=== PATIENT | male | born 1965 | race Caucasian/White ===

== ENCOUNTER 2019-08-16 11:16 | Outpatient (CLI) | payer OTHER | END 2019-08-16 11:17 | disposition home or self-care (01) | LOC: LAB 11:16 | PROVIDERS: ATTEND Otolaryngology | DX: C10.9 Malignant neoplasm of oropharynx, unspecified (principal); Z11.59 Encounter for screening for other viral diseases | CPT/HCPCS: 81599 ==

== ENCOUNTER 2020-05-29 07:22 | Outpatient (CLI) | payer OTHER | END 2020-05-29 07:23 | disposition critical access hospital (66) | LOC: EMS 07:22 | PROVIDERS: ATTEND Emergency Medicine | DX: R55 Syncope and collapse (principal) | CPT/HCPCS: A0425; A0427 ==

== ENCOUNTER 2020-05-29 07:43 | Emergency (ER) | payer OTHER ==
[2020-05-29 08:23] LABS: BASOPHILS # (AUTO) 0.1 10^3/uL (0.0-0.1); BASOPHILS % (AUTO) 0.3 %; EOSINOPHILS # (AUTO) 0.1 10^3/uL (0.0-0.7); EOSINOPHILS % (AUTO) 0.4 %; HCT - HEMATOCRIT 38.9 % (42.0-52.0); HGB - HEMOGLOBIN 12.7 g/dL (14.0-18.0); LYMPHOCYTES # (AUTO) 0.8 10^3/uL (1.5-3.5); MEAN CORPUSCULAR HEMOGLOBIN 29.3 pg (27.0-31.0); MEAN CORPUSCULAR HGB CONC 32.6 g/dL (32.0-36.0); MEAN CORPUSCULAR VOLUME 89.6 fL (80.0-94.0); MEAN PLATELET VOLUME 9.5 fL (7.4-11.4); MONOCYTES % (AUTO) 6.4 %; NEUTROPHILS # (AUTO) 13.3 10^3/uL (1.5-6.6); NEUTROPHILS % (AUTO) 87.4 %; PLT - PLATELET COUNT 186 10^3/uL (130-450); RED BLOOD COUNT 4.34 10^6/uL (4.70-6.10); RED CELL DISTRIBUTION WIDTH 12.6 % (12.0-15.0); WHITE BLOOD COUNT 15.2 x10^3/uL (4.8-10.8)
--- NOTE | 2020-05-29 08:38 | XRAY Report ---
PROCEDURE: Chest 1 View X-Ray INDICATIONS: Chest Pain TECHNIQUE: One view of the chest was acquired. COMPARISON: None FINDINGS: Surgical changes and devices: Right-sided Port-A-Cath is present with distal tip projecting over the mid SVC. Lungs and pleura: No pleural effusions or pneumothorax. Lungs are clear. Mediastinum: Mediastinal contours appear normal. Heart size is normal. Bones and chest wall: No suspicious bony lesions. Overlying soft tissues appear unremarkable. IMPRESSION: No acute pulmonary process. Reviewed by: Sue Danielle MD on 05/29/2020 8:37 AM PDT Approved by: Sue Danielle MD on 05/29/2020 8:37 AM PDT Station ID: [id number]
[2020-05-29 08:41] LABS: ALBUMIN 4.2 g/dL (3.2-5.5); ALBUMIN/GLOBULIN RATIO 1.2 (1.0-2.2); BILIRUBIN,TOTAL 1.1 mg/dL (0.2-1.0); CALCIUM 9.2 mg/dL (8.5-10.3); CREATININE 1.1 mg/dL (0.6-1.2); TOTAL PROTEIN 7.6 g/dL (6.7-8.2)
--- NOTE | 2020-05-29 09:11 | ED Physician Documentation ---
History of Present Illness - Stated complaint Stated Complaint: NEAR SYNCOPE - Chief complaint Chief Complaint: Neuro - History obtained from History obtained from: Patient - Additonal information Additional information: 54-year-old man with history of throat cancer and multiple presyncopal episodes since starting chemotherapy presents with presyncopal episode x3 in the shower this morning. He states he was taking a very warm shower and slid to the floor after having a wave of nausea and lightheadedness. He did not completely lose consciousness and did not hit his head. Also endorses some subjective chills last night and body aches around 3 AM waking him up from sleep. Denies fever, chest pain shortness of breath, cough, abdominal pain, vomiting or diarrhea. Denies urinary symptoms. Review of Systems Ten Systems: 10 systems reviewed and negative Constitutional: reports: Chills, Myalgias, Fatigue. denies: Fever Cardiac: denies: Chest pain / pressure, Palpitations Respiratory: denies: Dyspnea, Cough GI: denies: Abdominal Pain, Vomiting, Diarrhea Skin: denies: Rash Musculoskeletal: denies: Neck pain Neurologic: reports: Generalized weakness, Near syncope PD PAST MEDICAL HISTORY - Past Medical History HEENT: Other Other Past Medical History: throat cancer - Past Surgical History Ortho: Other - Present Medications Home Medications: Ambulatory Orders Medication Instructions Recorded Confirmed No Known Home Medications 05/29/20 05/29/20 - Allergies Allergies/Adverse Reactions: Allergies Allergy/AdvReac Type Severity Reaction Status Date / Time codeine AdvReac Nausea Verified 05/29/20 07:55 - Social History Does the pt smoke?: No Smoking Status: Never smoker Does the pt drink ETOH?: Yes ETOH Use: Wine, Beer Does the pt have substance abuse?: No PD ED PE NORMAL - Vitals Vital signs reviewed: Yes - General General: Alert and oriented X 3, No acute distress, Well developed/nourished - HEENT HEENT: Atraumatic, PERRL, EOMI, Moist mucous membranes, Pharynx benign - Neck Neck: Supple, no meningeal sign - Cardiac Cardiac: RRR - Respiratory Respiratory: No respiratory distress, Clear bilaterally - Abdomen Abdomen: Non tender, Non distended - Male Male : Deferred - Rectal Rectal: Deferred - Derm Derm: Normal color, Warm and dry - Extremities Extremities: No deformity, No edema - Neuro Neuro: Alert and oriented X 3, [employer] 2-12 intact, No motor deficit, No sensory deficit, Normal speech (Nasal speech) - Psych Psych: Normal mood, Normal affect Results - Vitals Vitals: Vital Signs - 24 hr 05/29/20 05/29/20 05/29/20 07:48 07:58 08:12 Temperature 36.5 C Heart Rate 64 59 L Heart Rate [ 65 Sitting] Heart Rate [ 70 Standing] Heart Rate [ 65 Supine] Respiratory 19 13 Rate Blood Pressure 110/71 104/60 Blood Pressure 100/67 [Sitting] Blood Pressure 104/60 [Standing] Blood Pressure 110/71 [Supine] O2 Saturation 98 100 Oxygen O2 Source Room air - Labs Labs: Laboratory Tests 05/29/20 05/29/20 05/29/20 08:20 08:20 08:20 WBC 15.2 H RBC 4.34 L Hgb 12.7 L Hct 38.9 L MCV 89.6 MCH 29.3 MCHC 32.6 RDW 12.6 Plt Count 186 MPV 9.5 Neut # (Auto) 13.3 H Lymph # (Auto) 0.8 L [place] # (Auto) 1.0 Eos # (Auto) 0.1 Baso # (Auto) 0.1 Absolute Nucleated RBC 0.00 Nucleated RBC % 0.0 Sodium 137 Potassium 4.0 Chloride 102 Carbon Dioxide 25 Anion Gap 10.0 BUN 19 Creatinine 1.1 Estimated GFR (MDRD) 69 L Glucose 106 H Calcium 9.2 Total Bilirubin 1.1 H AST 16 ALT 18 Alkaline Phosphatase 75 Troponin I High Sens 2.6 Total Protein 7.6 Albumin 4.2 Globulin 3.4 Albumin/Globulin Ratio 1.2 Lipase 20 L PD MEDICAL DECISION MAKING - ED course ED course: Offered observation overnight cardiac monitoring with echo in the morning to the patient and he declined, preferring to follow-up with his oncologist Dr. Warren at [facility]. He also has an appoint with ENT on June 06. Departure - Departure Disposition: 01 Home, Self Care Clinical Impression: Pre-syncope, Chills (without fever), Body aches Condition: Good Instructions: ED Near Syncope Unkn Follow-Up: Ismael Warren MD [Physician No Access] - Comments: You are seen in the emergency department for lightheadedness. Your EKG did not show any concerning findings and your blood work showed only a mild increased white blood cell count of 15 as well as mild anemia. You should follow-up with your primary doctor this week. Make an appointment with your oncologist and keep your appointment with your ENT on June 06. Return to the emergency department if you faint, experience fever higher than 100.4, or have any other new or worsening symptoms or other concerns. Stay well hydrated and try to drink 8-10 glasses of water daily.
[2020-05-29 09:31] VITALS: BP 121/62
== END 2020-05-29 09:25 | disposition home or self-care (01) ==
LOC: EDBD → EDUNIT# → ED 07:43
DX: R55 Syncope and collapse (principal); R42 Dizziness and giddiness; R68.83 Chills (without fever); R52 Pain, unspecified; D72.829 Elevated white blood cell count, unspecified; D64.9 Anemia, unspecified; Z85.819 Personal history of malignant neoplasm of unspecified site of lip, oral cavity, and pharynx
CPT/HCPCS: 36415; 80053; 83690; 84484; 85025; 93005; 99284

== ENCOUNTER 2022-08-20 06:35 | Emergency (ER) | payer OTHER ==
--- NOTE | 2022-08-20 06:57 | ED Physician Documentation ---
PD HPI ABD PAIN - Stated complaint Stated Complaint: R SIDE PX/VOMITING - Chief complaint Chief Complaint: Abd Pain - History obtained from History obtained from: Patient, Family (spouse) - History of Present Illness Timing - onset: Today, Last night Timing - details: Abrupt onset (shortly after eating.), Still present Quality: Cramping, Aching, Pain Location: RUQ Radiation: No: Chest, Lower back Improved by: Laying still Worsened by: Moving, Palpation. No: Breathing Associated symptoms: Nausea, Vomiting. No: Fever, Diarrhea Similar symptoms before: Has not had sx before Recently seen: Not recently seen Review of Systems Constitutional: denies: Fever, Chills Nose: denies: Rhinorrhea / runny nose, Congestion Throat: denies: Sore throat Respiratory: denies: Cough GI: reports: Abdominal Pain, Nausea, Vomiting. denies: Constipation, Diarrhea : denies: Dysuria Neurologic: denies: Generalized weakness, Near syncope, Altered mental status PD PAST MEDICAL HISTORY - Past Medical History Cardiovascular: None Respiratory: None Neuro: None Endocrine/Autoimmune: None HEENT: Other (tonsil cancer with treatment and resolved 3 years ago) - Past Surgical History Ortho: Other - Present Medications Home Medications: Ambulatory Orders Medication Instructions Recorded Confirmed Dicyclomine [Bentyl] 10 mg PO TID #20 cap 08/20/22 Ondansetron Odt [Zofran] 4 mg TL Q6H PRN #10 tablet 08/20/22 oxyCODONE [Roxicodone] 5 mg PO Q6H PRN #20 tablet 08/20/22 - Allergies Allergies/Adverse Reactions: Allergies Allergy/AdvReac Type Severity Reaction Status Date / Time codeine AdvReac Nausea Verified 08/20/22 06:44 - Social History Does the pt smoke?: No Smoking Status: Never smoker Does the pt drink ETOH?: Yes Does the pt have substance abuse?: No PD ED PE NORMAL - Vitals Vital signs reviewed: Yes - General General: Alert and oriented X 3, Well developed/nourished, Other (appears in considerable pain) - Neck Neck: Supple, no meningeal sign, No adenopathy - Cardiac Cardiac: RRR, No murmur - Respiratory Respiratory: Clear bilaterally - Abdomen Abdomen: Soft, Non distended, No organomegaly, Other (markedly tender RUQ with guarding and percussion tenderness. Lower abd not tender. ) - Derm Derm: Normal color, Warm and dry - Extremities Extremities: No edema, No calf tenderness / cord Results - Vitals Vitals: Vital Signs - 24 hr 08/20/22 08/20/22 08/20/22 06:41 07:35 09:34 Temperature 36.1 C L Heart Rate 58 L 58 L 65 Respiratory 15 18 18 Rate Blood Pressure 157/86 H 145/75 H 144/90 H O2 Saturation 99 100 97 08/20/22 08/20/22 11:00 12:03 Temperature Heart Rate 78 69 Respiratory 18 18 Rate Blood Pressure 128/67 120/75 O2 Saturation 97 95 Oxygen O2 Source Room air - Labs Labs: Laboratory Tests 08/20/22 08/20/22 08/20/22 07:17 07:17 11:22 WBC 9.9 RBC 4.73 Hgb 13.7 L Hct 41.5 L MCV 87.7 MCH 29.0 MCHC 33.0 RDW 12.5 Plt Count 250 MPV 10.0 Neut # (Auto) 9.0 H Lymph # (Auto) 0.5 L [place] # (Auto) 0.3 Eos # (Auto) 0.0 Baso # (Auto) 0.0 Absolute Nucleated RBC 0.00 Nucleated RBC % 0.0 Sodium 136 Potassium 4.3 Chloride 99 L Carbon Dioxide 28 Anion Gap 9.0 BUN 20 Creatinine 1.0 Estimated GFR (MDRD) 77 L Glucose 133 H Calcium 9.4 Total Bilirubin 0.8 AST 14 ALT 17 Alkaline Phosphatase 62 Total Protein 8.1 Albumin 4.3 Globulin 3.8 Albumin/Globulin Ratio 1.1 Lipase 26 Urine Color DARK YELLOW Urine Clarity CLEAR Urine pH 6.0 Ur Specific [place] 1.025 Urine Protein NEGATIVE Urine Glucose (UA) NEGATIVE Urine Ketones 40 H Urine Occult Blood NEGATIVE Urine Nitrite NEGATIVE Urine Bilirubin NEGATIVE Urine Urobilinogen 0.2 (NORMAL) Ur Leukocyte Esterase NEGATIVE Ur Microscopic Review NOT INDICATED Urine Culture Comments NOT INDICATED - Rads (name of study) abd U/S Relevant Findings:: Prelim report reviewed, EMP independent interpretation of test, See rad report, Other (U/S Tech - He has a large 3 cm stone in the gallbladder neck with some distention of the gallbladder and mild pericholecystic fluid. Early acute cholecystitis is suspected.) PD Medical Decision Making - ED course Complexity details: reviewed results, re-evaluated patient, considered differential (Abrupt onset of pain that is continued through the night in the right upper quadrant. Pattern of symptoms and exam most likely consistent with gallbladder problem. We will check labs as well for liver and pancreatic process. Will give IV fluids and medications and get ultrasound and labs.), d/w patient, d/w network security consultant (Dr. Cutler who is on-call for surgery.) ED course: The patient had improvement in his symptoms with fluids and antiemetic and pain medicine. He did have recurrence of pain after the ultrasound with local palpation. Repeat dose of pain medicine was given. Subsequently states his pain is minimal at 1 out of 10. He is able to drink fluids and subsequently some crackers after I discussed it with the surgeon. He does have potential signs of early cholecystitis but his symptoms are well improved and the surgeon felt he could be discharged for close prompt follow-up in the office if his symptoms were that minimal. The patient was comfortable with discharge home with regard to pain level and having prescriptions available. He is to return if he has worsening symptoms again as this may progress into a a more acute cholecystitis. Departure - Departure Disposition: 01 Home, Self Care Clinical Impression: Abdominal pain, Gallbladder attack, Cholelithiasis Condition: Stable Instructions: ED Gallstone W Biliary Colic Follow-Up: Betty Cutler MD [Provider Admit Priv/Credential] - Prescriptions: Dicyclomine [Bentyl] 10 mg PO TID #20 cap oxyCODONE [Roxicodone] 5 mg PO Q6H PRN #20 tablet PRN Reason: Pain Ondansetron Odt [Zofran] 4 mg TL Q6H PRN #10 tablet PRN Reason: Nausea / Vomiting Comments: You do have a large gallstone in the neck of the gallbladder which is in a location which causes blockage for the bile to get out of the gallbladder and subsequently cause spasms. There is a little bit of inflammation and swelling of the gallbladder correlating with this being the cause of your pain. 1 could anticipate having symptoms again from this in particular related to fatty foods. Have a nonfat diet over the next week or 2. At this point it does not seem that your gallbladder needs out emergently today based on the control of your symptoms. However we do want you to follow-up and discuss gallbladder surgery with the Dr. Cutler the surgeon. Call the surgical office today to set up an appointment. They should be notified of you and arrange an appointment for the next couple of days. Nonfat diet. Stay well-hydrated. Use dicyclomine antispasmodic 2-3 times daily to help reduce chance of gallbladder spasms. Ondansetron if needed for nausea. Add Tylenol every 4-6 hours if needed for pain and also add oxycodone then if needed for worse pain. Return to the ER if significant pain despite the above medications or if you develop repetitive vomiting, fevers, generalized abdominal pain or other concerns. I sent your prescriptions to [facility] pharmacy. I am prescribing a short course of narcotic pain medication for you. These are potentially dangerous and addictive medications that should be used carefully. These medications may constipate you. Take an [id number] stool softener such as docusate twice daily with plenty of water while taking these medications. If you go 24 hours without a bowel movement, take enhl-nic-[id number] MiraLAX, per package instructions. Do not drink or drive while taking these medications. If you received narcotic or sedating medications while in the emergency department do not drive for 24 hours. Store this medication in a safe, secure place and out of reach of children. It is a violation of federal law to give or sell this medication to another person or to use in a manner other than prescribed. The ED will not refill narcotic prescriptions, including prescriptions lost or stolen. You can dispose of unwanted medications at the [facility]'s office or at several pharmacies such as [facility]. Discharge Date/Time: 08/20/22 12:07
[2022-08-20] MEDS ORDERED: KETOROLAC 15 MG/ML VIAL IVP STA (07:08)
[2022-08-20] MEDS ORDERED: SODIUM CHLORIDE 0.9% 1,000 ML IV STA ×2 (07:08→09:31)
[2022-08-20] MEDS ORDERED: HYDROmorphone 1 MG/ML CARPUJECT IVP STA ×2 (07:08→09:33)
[2022-08-20] MEDS ORDERED: ONDANSETRON 4 MG/2 ML VIAL IVP STA (07:08)
[2022-08-20 07:28] LABS: BASOPHILS % (AUTO) 0.3 %; HCT - HEMATOCRIT 41.5 % (42.0-52.0); HGB - HEMOGLOBIN 13.7 g/dL (14.0-18.0); LYMPHOCYTES # (AUTO) 0.5 10^3/uL (1.5-3.5); LYMPHOCYTES % (AUTO) 4.7 %; MEAN CORPUSCULAR VOLUME 87.7 fL (80.0-94.0); MONOCYTES # (AUTO) 0.3 10^3/uL (0.0-1.0); MONOCYTES % (AUTO) 3.2 %; NEUTROPHILS % (AUTO) 91.3 %; PLT - PLATELET COUNT 250 10^3/uL (130-450); RED BLOOD COUNT 4.73 10^6/uL (4.70-6.10); RED CELL DISTRIBUTION WIDTH 12.5 % (12.0-15.0); WHITE BLOOD COUNT 9.9 x10^3/uL (4.8-10.8)
[2022-08-20 07:38] LABS: ALBUMIN 4.3 g/dL (3.2-5.5); ALBUMIN/GLOBULIN RATIO 1.1 (1.0-2.2); BILIRUBIN,TOTAL 0.8 mg/dL (0.2-1.0); CALCIUM 9.4 mg/dL (8.5-10.3); POTASSIUM 4.3 mmol/L (3.5-5.0); TOTAL PROTEIN 8.1 g/dL (6.7-8.2)
--- NOTE | 2022-08-20 09:31 | Ultrasound Report ---
PROCEDURE: Abdomen Limited INDICATIONS: RUQ pain and vomiting since last evening TECHNIQUE: Real-time focused scanning was performed of the abdomen, with image documentation. COMPARISONS: None. FINDINGS: Liver: Liver is normal in size and hyperechoic intraparenchymal echotexture. No discrete hepatic les ion is noted. Gallbladder: Enlarged gallbladder with stone seen in medical gallbladder measures 3.3 cm and is not m obile. Trace amount of pericholecystic fluid is seen. No sonographic Lagunas's sign or significant gal lbladder wall thickening. Biliary ducts: Intrahepatic bile ducts are non-dilated. Extrahepatic bile duct caliber measures 7.2 mm. Normal is 6-7 mm or less in diameter, or 10 mm or less post-cholecystectomy. Pancreas: Visualized portions of the pancreas are sonographically normal. Right kidney: Normal in size and echotexture. Right kidney measures 11.1 cm long. No hydronephrosis or nephrolithiasis. No solid masses. No complex renal cystic lesions which require follow-up. Aorta: Visualized aorta is normal in caliber at less than 3 cm. IVC: Intrahepatic inferior vena cava is patent. Miscellaneous: No free abdominal fluid. IMPRESSION: 1. Cholelithiasis with distended gallbladder and trace amount of pericholecystic fluid. Early acute c holecystitis is suspected. 2. Borderline prominent common bile duct. No gross choledocholithiasis. 3. Hepatic steatosis. Reviewed by: Varun Mckay MD on 08/20/2022 9:30 AM PDT Approved by: Varun Mckay MD on 08/20/2022 9:30 AM PDT Station ID: [id number]
[2022-08-20 11:28] LABS: BILIRUBIN,URINE NEGATIVE (NEGATIVE); GLUCOSE, URINE (UA) NEGATIVE (NEGATIVE); KETONES,URINE (UA) 40 mg/dL (NEGATIVE); LEUKOCYTE ESTERASE, URINE NEGATIVE (NEGATIVE); NITRITE,URINE NEGATIVE (NEGATIVE); OCCULT BLOOD,URINE NEGATIVE (NEGATIVE); PROTEIN,URINE NEGATIVE (NEGATIVE); UROBILINOGEN,URINE 0.2 (NORMAL) E.U./dL (NORMAL)
[2022-08-20 11:30] LABS: CLARITY,URINE CLEAR (CLEAR)
[2022-08-20 12:10] VITALS: BP 120/75
== END 2022-08-20 12:07 | disposition home or self-care (01) ==
LOC: ED 06:35
DX: K80.20 Calculus of gallbladder without cholecystitis without obstruction (principal); R10.11 Right upper quadrant pain
CPT/HCPCS: 36415; 80053; 81001; 81003; 83690; 85025; 87086; 96374; 96375; 96376; 99285

== ENCOUNTER 2022-08-20 19:54 | Day surgery (SDC) | payer OTHER ==
[2022-08-20] MEDS ORDERED: HYDROmorphone 0.5 MG/0.5 ML SYRINGE IVP STA (21:26)
[2022-08-20] MEDS ORDERED: ONDANSETRON 4 MG/2 ML VIAL IVP STA (21:26)
--- NOTE | 2022-08-20 21:32 | ED Physician Documentation ---
PD HPI ABD PAIN - Stated complaint Stated Complaint: ABD PX - Chief complaint Chief Complaint: Abd Pain - History obtained from History obtained from: Patient - Additional information Additional information: 56-year-old male with a past medical history of tonsil cancer status posttreatment, presents for the second time today with right upper quadrant abdominal pain with nausea and vomiting. He was evaluated this morning in ultrasound revealed gallstones with possible early cholecystitis so his labs are stable. He had substantial improvement with IV pain and nausea medicine and and therefore was discharged home with instructions to adhere to a low-fat diet and follow-up with surgery on outpatient basis. The patient ate some salad and cereal and subsequently developed severe recurrence of his right upper quadrant abdominal pain as well as nausea and dry heaving. He tried the oxycodone that he was given as well as a Zofran and had [place] no relief in his pain thus he presented back to the ER tonight. He has not had a fever to his knowledge. Review of Systems Constitutional: reports: Reviewed and negative Cardiac: reports: Reviewed and negative Respiratory: reports: Reviewed and negative GI: reports: Abdominal Pain, Nausea, Vomiting. denies: Constipation, Diarrhea, Hematemesis : reports: Reviewed and negative Skin: reports: Reviewed and negative PD PAST MEDICAL HISTORY - Past Medical History Past Medical History: Yes Cardiovascular: None Respiratory: None Neuro: None Endocrine/Autoimmune: None HEENT: Other (tonsil cancer with treatment and resolved 3 years ago) - Past Surgical History Ortho: Other - Present Medications Home Medications: Ambulatory Orders Medication Instructions Recorded Confirmed Dicyclomine [Bentyl] 10 mg PO TID #20 cap 08/20/22 Ondansetron Odt [Zofran] 4 mg TL Q6H PRN #10 tablet 08/20/22 oxyCODONE [Roxicodone] 5 mg PO Q6H PRN #20 tablet 08/20/22 - Allergies Allergies/Adverse Reactions: Allergies Allergy/AdvReac Type Severity Reaction Status Date / Time codeine AdvReac Nausea Verified 08/20/22 20:08 - Social History Does the pt smoke?: No Smoking Status: Never smoker Does the pt drink ETOH?: Yes Does the pt have substance abuse?: No - POLST Patient has POLST: No PD ED PE NORMAL - Vitals Vital signs reviewed: Yes - General General: Alert and oriented X 3, Well developed/nourished, Other (Dry heaving) - HEENT HEENT: Atraumatic, Moist mucous membranes - Neck Neck: Other (Scarring from prior tonsil surgery) - Cardiac Cardiac: RRR, No murmur - Respiratory Respiratory: No respiratory distress, Clear bilaterally - Abdomen Abdomen: Normal bowel sounds, Soft, Non distended, Other (Mild right upper quadrant tenderness to palpation.) - Derm Derm: Normal color, Warm and dry - Extremities Extremities: No deformity, No tenderness to palpate - Neuro Neuro: Alert and oriented X 3 Eye Opening: Spontaneous Motor: Obeys Commands Verbal: Oriented GCS Score: 15 Results - Vitals Vitals: Vital Signs - 24 hr 08/20/22 20:03 Temperature 37.0 C Heart Rate 60 Respiratory 17 Rate Blood Pressure 140/77 H O2 Saturation 99 Oxygen O2 Source Room air - Rads (name of study) No standard instances Relevant Findings:: Final report received (Reviewed ultrasound from this morning) PD Medical Decision Making - ED course Complexity details: reviewed results, re-evaluated patient, considered differential, d/w patient, d/w family ED course: 56-year-old male who presents for the second time today with right upper quadrant pain. He Had a right upper quadrant ultrasound this morning that showed a gallstone and possible early acute Cholecystitis however labs reassuring x-ray sent home with supportive measures and return precautions. Symptoms worsened after he attempted a low-fat meal today and his symptoms have not relented despite trying Oral meds. I therefore will repeat his labs now and likely will need admission for possible cholecystectomy tomorrow given his severe and recurrent symptoms and concern for possible acute cholecystitis Departure - Departure Clinical Impression: Cholecystitis, Gallstones Condition: Good
[2022-08-20 21:50] LABS: BASOPHILS % (AUTO) 0.3 %; EOSINOPHILS % (AUTO) 0.3 %; HGB - HEMOGLOBIN 13.6 g/dL (14.0-18.0); LYMPHOCYTES % (AUTO) 7.6 %; MEAN CORPUSCULAR HEMOGLOBIN 28.8 pg (27.0-31.0); MEAN CORPUSCULAR HGB CONC 32.4 g/dL (32.0-36.0); MEAN CORPUSCULAR VOLUME 88.8 fL (80.0-94.0); MEAN PLATELET VOLUME 9.9 fL (7.4-11.4); MONOCYTES # (AUTO) 1.2 10^3/uL (0.0-1.0); MONOCYTES % (AUTO) 8.6 %; NEUTROPHILS # (AUTO) 11.1 10^3/uL (1.5-6.6); NEUTROPHILS % (AUTO) 82.9 %; PLT - PLATELET COUNT 261 10^3/uL (130-450); RED BLOOD COUNT 4.73 10^6/uL (4.70-6.10); RED CELL DISTRIBUTION WIDTH 12.8 % (12.0-15.0); WHITE BLOOD COUNT 13.4 x10^3/uL (4.8-10.8)
[2022-08-20 22:12] LABS: ALBUMIN 4.4 g/dL (3.2-5.5); ALBUMIN/GLOBULIN RATIO 1.2 (1.0-2.2); BILIRUBIN,TOTAL 1.1 mg/dL (0.2-1.0); CREATININE 1.1 mg/dL (0.6-1.2); TOTAL PROTEIN 8.1 g/dL (6.7-8.2)
[2022-08-20] MEDS ORDERED: ONDANSETRON 4 MG/2 ML VIAL IVP PRN (22:34)
[2022-08-20] MEDS ORDERED: PIPERACILLIN/TAZOBACTAM 4.5 GM in SODIUM CHLORIDE 0.9% MINIBAG 100 ML IV STA (22:35)
[2022-08-20] MEDS ORDERED: ACETAMINOPHEN 500 MG TABLET PO PRN (22:37)
[2022-08-20 22:58] LABS: HGB - HEMOGLOBIN 12.9 g/dL (14.0-18.0); MEAN CORPUSCULAR HEMOGLOBIN 29.3 pg (27.0-31.0); MEAN CORPUSCULAR HGB CONC 33.1 g/dL (32.0-36.0); MEAN CORPUSCULAR VOLUME 88.6 fL (80.0-94.0); MEAN PLATELET VOLUME 10.1 fL (7.4-11.4); RED BLOOD COUNT 4.4 10^6/uL (4.70-6.10); RED CELL DISTRIBUTION WIDTH 12.7 % (12.0-15.0); WHITE BLOOD COUNT 14.2 x10^3/uL (4.8-10.8)
[2022-08-20 23:25] LABS: ALBUMIN/GLOBULIN RATIO 1.1 (1.0-2.2); BILIRUBIN,TOTAL 1.3 mg/dL (0.2-1.0); CALCIUM 8.9 mg/dL (8.5-10.3); POTASSIUM 4.2 mmol/L (3.5-5.0); TOTAL PROTEIN 7.6 g/dL (6.7-8.2)
[2022-08-21] MEDS: KETOROLAC 15 MG/ML VIAL IVP PRN ×2 (00:20→06:16)
[2022-08-21] MEDS: SODIUM CHLORIDE 0.9% 1,000 ML IV SCH ×2 (00:21→11:01)
[2022-08-21] MEDS: HYDROmorphone 0.5 MG/0.5 ML SYRINGE IVP PRN ×2 (00:48→05:17)
--- NOTE | 2022-08-21 07:26 | SURGERY HX AND PHYSICAL(T) ---
Surgical History & Physical - Chief Complaint/HPI Chief Complaint: RUQ pain History of Present Illness: 56 y/o M with acute onset of sharp RUQ pain Friday night at 2300 after eating BBQ ribs for dinner. His pain was constant and did not radiate. He presented to the ED and workup included a normal white count and RUQ sono with a stone, - Lagunas sign, and without wall thickening. He felt much better after receiving pain medication, and tolerated a diet without worsening symptoms. At that time, he was discharged home with plan for close follow up with surgery and return precautions. The patient returned home and ate breakfast without trouble. He had taco salad for dinner and had recurrent pain with nausea, prompting him to return to the ED. His pain was again controlled in the ED. Repeat lab shows increased wbc. This morning, the patient states he has some discomfort but was able to sleep overnight. He denies fevers, chills, nausea, vomiting. - PMH/PSH/Social Hx Neurological History: None Eyes, Ears, Nose, Throat: Other (tonsil cancer with intial treatment 01/2017, recurred in 08/2019) Cardiovascular: None Respiratory: None Skin: None Endocrine/Autoimmune: None Gastrointestinal: Chronic constipation Urinary: Other Musculoskeletal: None Blood Disorders: None Psychiatric: None PMH Other: pt states he has an enlarged prostate, tinnitus General: Gastric surgery (g tube) Orthopedic: Other Eyes Ears Nose Throat (EENT): Tonsil/Adenoidectomy, Other Dermatologic: Skin grafts Smoking Status: Former smoker Does the pt drink ETOH?: Yes Does the pt have substance abuse?: No - Family Hx Family Hx: Other (non contributory) - Home Meds and Allergies Allergies/Adverse Reactions: Allergies Allergy/AdvReac Type Severity Reaction Status Date / Time codeine AdvReac Nausea Verified 08/20/22 20:08 - Review of Systems Constitutional: Other (A complete 10 point review of symptoms is otherwise negative except for that noted in HPI and PMH.) - Vital Signs Heart Rate: 59 Blood Pressure: 152/69 Temperature: 36.5 C Respiratory Rate: 12 O2 Saturation: 99 Weight (kg): 96 kg Height: 1.85 m - Physical Exam Comments/Other: GEN: No acute distress, appears stated age, alert and oriented HEENT: NCAT, MMM, EOMI, scarring consistent with previous surgery NEURO: no obvious focal deficits CV: RRR PULM: non labored, on RA ABD: soft, moderate RUQ ttp with palpable mass, no rebound or guarding CIRCULATORY: no clubbing, cyanosis, or edema SKIN: no lesions appreciated LYMPH: no obvious lymphadenopathy MSK: 4/4 strength in all extremities PSYCH: Affect is appropriate - Patient Review Patient Review: Problems were reviewed with the patient during this visit. Medications were reviewed with the patient during this visit. Allergies were reviewed this patient during this visit. Pertinent Tests Reviewed: All pertitent test for this patient were reviewed. - Assessment & Plan Assessment and Plan: 56 y/o M with: 1. acute cholecystitis - wbc elevated - Plan for lap po with cholangiogram possible open, today. I discussed the natural history of acute cholecystitis with the patient. We also discussed the risks, benefits, and alternatives of laparoscopic cholecystectomy with cholangiogram and possible open procedure. We discussed surgical risks including bleeding, infection, and damage to surrounding structures. We also discussed the intraoperative and postoperative plan including the possible need for drain placement and possibility of an open procedure. The patient voiced understanding, his questions were answered, and he wished to proceed with surgery. A consent was signed by the patient. - will adat after surgery - anticipate patient will discharge after surgery this afternoon 2. h/o tonsil ca - s/p surgery, chemo, radiation - scarring preset - anesthesia to eval patient prior to surgery.
[2022-08-21] MEDS ORDERED: LIDOCAINE OINTMENT 5% 35.44 GM TUBE ONE (10:45)
[2022-08-21] MEDS ORDERED: GABAPENTIN 300 MG CAPSULE PO ONE (11:00)
[2022-08-21] MEDS ORDERED: acetaZOLAMIDE 250 MG TABLET PO ONE (11:00)
[2022-08-21] MEDS ORDERED: ACETAMINOPHEN 500 MG TABLET PO ONE (11:00)
--- NOTE | 2022-08-21 11:04 | ANESTHESIA ---
Pre-Anesthesia VS, & Labs - Diagnosis acute cholecystitis - Procedure lap po Vital Signs: Temp Pulse Resp BP Pulse Ox O2 Flow Rate 36.7 C 70 16 118/56 L 95 08/21/22 08:33 08/21/22 08:33 08/21/22 08:33 08/21/22 08:33 08/21/22 08:33 Height: 6 ft 1 in Weight (kg): 96 kg Body Mass Index: 27.9 BMI Classification: Overweight - NPO >8 hours - Lab Results Current Lab Results: Laboratory Tests 08/20/22 22:55: Sodium 136, Potassium 4.2, Chloride 101, Carbon Dioxide 28, Anion Gap 7.0, BUN 15, Creatinine 1.0, Estimated GFR (MDRD) 77 L, Glucose 129 H, Calcium 8.9, Total Bilirubin 1.3 H, AST 13, ALT 18, Alkaline Phosphatase 59, Total Protein 7.6, Albumin 4.0, Globulin 3.6, Albumin/Globulin Ratio 1.1 08/20/22 22:55: WBC 14.2 H, RBC 4.40 L, Hgb 12.9 L, Hct 39.0 L, MCV 88.6, MCH 29.3, MCHC 33.1, RDW 12.7, Plt Count 238, MPV 10.1 08/20/22 21:45: Sodium 135, Potassium 4.0, Chloride 99 L, Carbon Dioxide 29, Anion Gap 7.0, BUN 15, Creatinine 1.1, Estimated GFR (MDRD) 69 L, Glucose 130 H, Calcium 9.0, Total Bilirubin 1.1 H, AST 15, ALT 19, Alkaline Phosphatase 63, Total Protein 8.1, Albumin 4.4, Globulin 3.7, Albumin/Globulin Ratio 1.2, Lipase 25 08/20/22 21:45: WBC 13.4 H, RBC 4.73, Hgb 13.6 L, Hct 42.0, MCV 88.8, MCH 28.8, MCHC 32.4, RDW 12.8, Plt Count 261, MPV 9.9, Neut # (Auto) 11.1 H, Lymph # (Auto) 1.0 L, Routt # (Auto) 1.2 H, Eos # (Auto) 0.0, Baso # (Auto) 0.0, Absolute Nucleated RBC 0.00, Nucleated RBC % 0.0 Lab results reviewed: Yes Fish Bones: 08/20/22 22:55 08/20/22 22:55 Home Medications and Allergies Active Medications Acetaminophen (Acetaminophen 500 Mg Tablet) 650 mg PO Q4HR PRN PRN Reason: PAIN 1-4 Last Admin: 08/21/22 06:21 Dose: 650 mg Hydromorphone HCl (Hydromorphone 0.5 Mg/0.5 Ml Syringe) 0.5 mg IVP Q2H PRN PRN Reason: PAIN >8 Last Admin: 08/21/22 05:17 Dose: 0.5 mg Sodium Chloride (Normal Saline 0.9%) 1,000 mls @ 125 mls/hr IV .Q8H CHAPIN Last Admin: 08/21/22 00:21 Dose: 125 mls/hr Cefazolin Sodium 2 gm/ Sodium (Chloride) 100 mls @ 200 mls/hr IV ONCE ONE Stop: 08/21/22 12:29 Metronidazole (Flagyl 500 Mg/100 Ml) 500 mg in 100 mls @ 100 mls/hr IV ONCE ONE Stop: 08/21/22 12:59 Ketorolac Tromethamine (Ketorolac 15 Mg/Ml Vial) 15 mg IVP Q6H PRN PRN Reason: PAIN 5-7 Stop: 08/25/22 22:59 Last Admin: 08/21/22 06:16 Dose: 15 mg Ondansetron HCl (Ondansetron 4 Mg/2 Ml Vial) 4 mg IVP Q6HR PRN PRN Reason: Nausea / Vomiting Allergies/Adverse Reactions: Allergies Allergy/AdvReac Type Severity Reaction Status Date / Time codeine AdvReac Nausea Verified 08/20/22 20:08 Anes History & Medical History - Anesthetic History Anesthesia Complications: reports: No previous complications Family history of Anesthesia Complications: Denies Family history of Malignant Hyperthermia: Denies - Medical History Cardiovascular: reports: None Pulmonary: reports: None Gastrointestinal: reports: Chronic constipation Urinary: reports: Other Neuro: reports: None Musculoskeletal: reports: None Endocrine/Autoimmune: reports: None Blood Disorders: reports: None Skin: reports: None Smoking Status: Former smoker Other Past Medical History: pt states he has an enlarged prostate, tinnitus - Surgical History General: reports: Gastric surgery (g tube) Eyes Ears Nose Throat (EENT): reports: Tonsil/Adenoidectomy, Other Orthopedic: reports: Other Dermatologic: reports: Skin grafts Exam General: Alert, Oriented x3, Cooperative Dental: WNL Mouth Openin Fingerbreadth Neck Mobility: Limited Mallampati classification: II Thyromental Distance: 4-6 cm Respiratory: Lungs clear Cardiovascular: Regular rate (s/p radical neck, radiation, scarred tissue, plan for awake foi, discussed w pt, verbalized understanding) Plan Anesthesia Type: General Consent for Procedure(s) Verified and Reviewed: Yes Code Status: Attempt Resuscitation ASA classification: 2-Mild systemic disease Is this case an emergency?: No
[2022-08-21] MEDS ORDERED: NALOXONE 0.4 MG/ML VIAL IVP PRN ×2 (11:06→14:17)
[2022-08-21] MEDS ORDERED: ONDANSETRON 4 MG/2 ML VIAL IVP PRN ×2 (11:06→14:17)
[2022-08-21] MEDS ORDERED: fentaNYL 100 MCG/2 ML VIAL IVP PRN ×2 (11:06→14:17)
[2022-08-21] MEDS ORDERED: ePHEDrine 50 MG/ML VIAL IVP PRN ×2 (11:06→14:17)
[2022-08-21] MEDS ORDERED: HYDROmorphone 0.5 MG/0.5 ML SYRINGE IVP PRN ×3 (11:06→14:17)
[2022-08-21] MEDS ORDERED: ATROPINE ABBOJECT 1 MG/10 ML SYRINGE IVP PRN ×2 (11:06→14:17)
[2022-08-21] MEDS ORDERED: PROPOFOL 500 MG/50 ML 500 MG/50 ML VIAL ONE (11:17)
[2022-08-21] MEDS ORDERED: LIDOCAINE-PF 2% 10 ML AMP SUBQ ONE (11:17)
[2022-08-21] MEDS ORDERED: DEXMEDETOMIDINE 200 MCG/2 ML VIAL ONE (11:17)
[2022-08-21] MEDS ORDERED: ROCURONIUM 50 MG/5 ML VIAL ONE (11:17)
[2022-08-21] MEDS ORDERED: DEXAMETHASONE 4 MG/ML VIAL ONE ×2 (11:17→12:43)
[2022-08-21] MEDS ORDERED: LIDOCAINE 1%-EPI 1:100000 20 ML MDV ONE (11:43)
[2022-08-21] MEDS ORDERED: BUPIVACAINE 0.25% PF 30 ML VIAL ONE (11:43)
[2022-08-21] MEDS ORDERED: iohexoL-240 10 ML VIAL IVP ONE (11:43)
[2022-08-21] MEDS ORDERED: LACTATED RINGERS 1,000 ML IV SCH ×2 (12:00→14:17)
[2022-08-21] MEDS ORDERED: metroNIDAZOLE 500 MG/100 ML 500 MG/100 ML BAG IV ONE (12:00)
[2022-08-21] MEDS ORDERED: ceFAZolin 2 GM in SODIUM CHLORIDE 0.9% MINIBAG 100 ML IV ONE (12:00)
[2022-08-21] MEDS ORDERED: fentaNYL 100 MCG/2 ML VIAL ONE (12:00)
[2022-08-21] MEDS ORDERED: MIDAZOLAM 2 MG/2 ML VIAL ONE (12:00)
[2022-08-21] MEDS ORDERED: metroNIDAZOLE 500 MG/100 ML 500 MG/100 ML BAG ONE (12:38)
[2022-08-21] MEDS ORDERED: ONDANSETRON 4 MG/2 ML VIAL ONE (12:43)
[2022-08-21] MEDS ORDERED: BUPIVACAINE 0.25% PF 30 ML VIAL SUBQ ONE (13:41)
[2022-08-21] MEDS ORDERED: LIDOCAINE 1%-EPI 1:100000 20 ML MDV SUBQ ONE (13:41)
[2022-08-21] MEDS ORDERED: SUGAMMADEX 200 MG/2 ML VIAL IVP ONE (13:46)
[2022-08-21] MEDS ORDERED: KETOROLAC 30 MG/ML VIAL ONE (13:51)
--- NOTE | 2022-08-21 14:07 | OPERATIVE REPORT ---
Operative Report - General Procedure Date: 08/21/22 Planned Procedure: Laparoscopic cholecystectomy with intraoperative cholangiogram, possible open Pre-Op Diagnosis: Acute cholecystitis Procedure Performed: Laparoscopic cholecystectomy with intraoperative cholangiogram Post Op Diagnosis: Acute calculus cholecystitis - Procedure Note Primary Surgeon: Dr. Abimbola Cutler Anesthesia Provider: Tez Cervantes CRNA Anesthesia Technique: General ET tube, Local Pathology: Gallbladder and contents Estimated Blood Loss (mL): 20 Indications: The patient has a 2-day history of right upper quadrant abdominal pain. He was initially seen in the emergency department with pain that resolved and went home. His pain then recurred and he returned to the emergency department. During that time his white blood cell count became elevated and his pain became more constant. For acute cholecystitis, he was admitted to the hospital. I discussed the risks, benefits, and alternatives of laparoscopic cholecystectomy with cholangiogram and the possibility of need for an open procedure with the patient. Risks discussed include bleeding, infection, damage to surrounding structures including the common bile duct, and the need for further surgeries or procedures. The patient voiced understanding, his questions were answered, and he wished to proceed. PAR-Q. A consent was signed by the patient prior to the procedure. Findings: 1. Severe inflammation in the right upper quadrant with dense adhesions between the gallbladder and omentum 2. Calculus cholecystitis 3. Normal cholangiogram Complications: None - Other Other Information/Narrative: The patient was brought to the operative suite and placed in the supine position. General endotracheal anesthesia was induced. Preoperative antibiotics were given. ERAS protocol was followed. A preop surgical timeout was performed. Local anesthetic was injected into the skin and subcutaneous tissues just inferi or to the umbilicus. An 11 blade scalpel was used to make a 5 mm transverse skin incision in this location. Next, a hemostat was used to spread the tissues down to the level of the fascia and a Mitul clamp was used to grasp and elevate the umbilical stalk. A Varess needle was used to gain access to the peritoneal space. Low flow insufflation revealed low pressures and then high flow insufflation was undertaken to 15 mmHg. Next, the Varess needle was removed and a 5 mm laparoscopic port was inserted in this location. Through this port, a 5 mm 30 degree laparoscope was inserted. On inspection of the abdomen no injury was caused on entry. Next, the patient was placed in reverse Trendelenburg and rotated slightly to the left. Two 5 mm ports were inserted in the right upper quadrant, one in the anterior axillary line and the other in the midclavicular line. Also, a 12 mm port was inserted in the subxiphoid region. All ports were placed by first anesthetizing the skin and subcutaneous tissues with local anesthetic, then by making an appropriate length incision with an 11 blade scalpel, and finally by placing the port under direct laparoscopic vision. Once the ports were in place, a ratcheted, toothed grasper was used to elevate the fundus of the gallbladder toward the patient's right shoulder. There were dense adhesions in the right upper quadrant between the omentum and the gallb ladder. These were carefully taken down with blunt and sharp dissection with electrocautery, with great care taken not to cauterize through any tissue I could not easily see through. Next, the peritoneum was incised starting at the hilum of the gallbladder and working toward the fundus along the gallbladder liver interface on the medial and lateral aspects of the gallbladder. Next, attention was returned to the hilum of the gallbladder. The alveolar tissues in this region were taken down with blunt and sharp dissection with electrocautery taking great care not to cauterize though any tissue I could not easily see through. Two ductal structures were isolated and skeletonized such that each ductal structure could be visualized with liver present on either side. The cystic plate was also developed. At this time, it was felt that a critical view of safety had been obtained. Pictures were taken to demonstrate this critical view from the medial and lateral perspectives. Next, a clip was placed distally, that is toward the gallbladder, on the cystic duct and just proximal to this a ductotomy was performed. A cholangiogram catheter was placed within the duct and it was flushed with saline. There was no leakage and it flushed easily. Clips were also placed proximally and distally on the cystic artery. Full strength Isovue dye was then placed on the cholangiogram catheter and a cholangiogram was performed. The cholangiogram appeared normal. There was good filling of the right and left hepatic system as well as the duodenum and common bile duct. There were no filling defects. Next the cholangiogram catheter was removed. Two clips were placed proximally on the cystic duct. The cystic duct and cystic artery were divided using laparoscopic scissors between the clips. Next the gal lbladder was dissected off of the liver bed. Once it was completely freed, the gallbladder was placed in an Endo Catch bag and removed through the epigastric port. The epigastric port was replaced and suction and irrigation were used to remove any fluid from the right upper quadrant. This was done until the fluid returned was clear. Next, quarter percent Marcaine with epinephrine in the amount of 10 mL was infused into the right upper quadrant along the liver diaphragm interface to reduce to postoperative pain. Next, a laparoscopic fascial closure device was used to place 3, interrupted 0 Vicryl sutures at the epigastric port. This reapproximated the fascia well. The remaining ports were removed under direct laparoscopic vision and the abdomen was deflated. Next, the skin edges were reapproximated with 4-0 Monocryl in an interrupted subcuticular fashion. A sterile dressing of skin glue was placed. The patient tolerated the procedure well. The patient was extubated in the operating room and transferred to the recovery room in stable condition. There were no complications.
[2022-08-21] MEDS ORDERED: LACTATED RINGERS 1,000 ML IV ONE (14:08)
[2022-08-21] MEDS ORDERED: IBUPROFEN 600 MG TABLET PO PRN (14:09)
[2022-08-21] MEDS ORDERED: oxyCODONE 5 MG TABLET PO PRN (14:09)
--- NOTE | 2022-08-21 14:35 | XRAY Report ---
PROCEDURE: OR C-Arm Procedure INDICATIONS: LAP DUSTIN FLUORO TIME: 0.1 TECHNIQUE: Intraoperative fluoroscopic images of the right upper quadrant were acquired during cholec ystectomy. The surgeon accessed/cannulated the cystic duct. COMPARISON: None. FINDINGS: Intraoperative fluoroscopic images of the abdomen demonstrate contrast opacification of the cystic du ct and common bile duct as well as the visualized segments of the intrahepatic ducts. Contrast flows readily into the duodenum. No intraluminal filling defects appreciated. IMPRESSION: Negative intraoperative cholangiogram. Reviewed by: Mustapha Whitfield MD on 08/21/2022 2:34 PM PDT Approved by: Mustapha Whitfield MD on 08/21/2022 2:34 PM PDT Station ID: [id number]
--- NOTE | 2022-08-21 15:18 | ANESTHESIA POST OP EVALUATION ---
Anesthesia Post Eval - Post Anesthesia Eval Vitals: Last Vital Signs Temp 37.3 C 08/21/22 14:36 Pulse 82 08/21/22 14:42 Resp 16 08/21/22 14:42 BP 106/60 08/21/22 14:42 Pulse Ox 96 08/21/22 14:42 O2 Flow Rate CV Function Including HR & BP: Stable Pain Control: Satisfactory Nausea & Vomiting: Negative Mental Status: Baseline Respiratory Status: Airway Patent Hydration Status: Satisfactory Anesthesia Complications: None
[2022-08-21 18:16] VITALS: BP 128/73
[2022-08-22] MEDS ORDERED: polyethylene glycoL 3350 17 GM PACKET PO SCH (09:00)
== END 2022-08-21 18:00 | disposition home or self-care (01) ==
LOC: ED 19:54 → SDS 22:34 → MS2 23:15 → SDS 08-21 18:00
PROVIDERS: ATTEND Surgery
PROC: 0FT44ZZ Resection of Gallbladder, Percutaneous Endoscopic Approach (ICD-10-PCS; principal; 2022-08-20)
PROC: BF101ZZ Fluoroscopy of Bile Ducts using Low Osmolar Contrast (ICD-10-PCS; 2022-08-20)
DX: K80.00 Calculus of gallbladder with acute cholecystitis without obstruction (principal); Z85.818 Personal history of malignant neoplasm of other sites of lip, oral cavity, and pharynx; Z87.891 Personal history of nicotine dependence; Z92.3 Personal history of irradiation
CPT/HCPCS: 36415; 47563; 76705; 80053; 81003; 83690; 85025; 85027; 96374; 96375; 96376; 99285; A9270; C1758; J1170; J7120; Q9966; 81001; 87086